=== PATIENT | female | born 1970 | race Caucasian/White ===

== ENCOUNTER 2016-11-17 20:57 | Emergency (ER) | payer MEDICAID, OTHER ==
--- NOTE | 2016-11-18 01:19 | ER Document Report ---
ED Skin Rash/Insect Bite/Abscs - General Time seen by provider: 01:15 Mode of Arrival: Ambulatory Information source: Patient TRAVEL OUTSIDE OF THE [place] IN LAST 30 DAYS: No - HPI Patient complains to provider of: Skin rash/lesion Onset: Other Onset/Duration: - Quality of pain: Other - Precautions again itchy Severity: Moderate Pain Level: 3 Skin Character: Rash Skin Temperature: Warm Quality of rash: Itchy, Painful Identify cause: No Exacerbated by: Denies Relieved by: Denies Similar symptoms previously: No Recently seen / treated by doctor: No <CARLO DUBON - Last Filed: 11/18/16 06:50> <NIXON HARVEY - Last Filed: 11/18/16 07:31> - General Chief Complaint: Rash Stated Complaint: RASH Notes: 46-year-old female presents to ED for a rash to her abdomen back chest arms or legs. She states she had a liver transplant in 2013. She states that she had a couple spots on her abdomen on then her abdomen was covered on Saturday then it spread to her arms legs and back on Saturday states the rash is prickly and itchy at the same time. (CARLO DUBON) - Related Data Allergies/Adverse Reactions: amoxicillin [Amoxicillin] Allergy (Severe, Verified 11/17/16 22:15) rash acetaminophen [From Tylenol] Adverse Reaction (Severe, Verified 11/17/16 22:15) NOT SUPPOSED TO TAKE R/T LIVER TRANSPLANT cyclobenzaprine HCl [From Flexeril] Adverse Reaction (Severe, Verified 11/17/16 22:15) QUESTIONABLE CONFUSION, BLACKOUTS meperidine HCl [From Demerol] Adverse Reaction (Intermediate, Verified 11/17/16 22:15) Hallucinations Past Medical History - General Information source: Patient - Social History Smoking Status: Never Smoker Cigarette use (# per day): No Chew tobacco use (# tins/day): No Smoking Education Provided: No Frequency of alcohol use: None Drug Abuse: None Lives with: Family Family History: DM, Hypertension, Malignancy Patient has suicidal ideation: No Patient has homicidal ideation: No - Past Medical History Cardiac Medical History: Reports: Hx Hypercholesterolemia Pulmonary Medical History: Reports: Hx Pneumonia - 1990, since had pneumovax in [place] Medical History: Reports: None Neurological Medical History: Reports: None Endocrine Medical History: Reports: None Renal/ Medical History: Reports: None Malignancy Medical History: Reports: None GI Medical History: Reports: Hx Cirrhosis, Hx Gastroesophageal Reflux Disease, Hx Hepatitis - autoimmune hepatitis since 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, Hx Liver Failure - transplant at [facility] 09/2013 Musculoskeltal Medical History: Reports None Skin Medical History: Reports None Psychiatric Medical History: Reports: Hx Depression Traumatic Medical History: Reports: Hx Fractures - toe Infectious Medical History: Reports: Hx Hepatitis - autoimmune hepatitis since 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 Past Surgical History: Reports: Hx Abdominal Surgery - Liver Transplant 09/2013 , Hx Gynecologic Surgery - Immunizations Immunizations up to date: Yes Hx Diphtheria, Pertussis, Tetanus Vaccination: Yes Hx Pneumococcal Vaccination: 09/24/91 <CARLO DUBON - Last Filed: 11/18/16 06:50> Review of Systems - Review of Systems Constitutional: No symptoms reported EENT: No symptoms reported Cardiovascular: No symptoms reported Respiratory: No symptoms reported Gastrointestinal: No symptoms reported Genitourinary: No symptoms reported Female Genitourinary: No symptoms reported Musculoskeletal: No symptoms reported Skin: Rash - Itchy painful rash to abdomen back chest arms and legs Hematologic/Lymphatic: No symptoms reported Neurological/Psychological: No symptoms reported <CARLO DUBON - Last Filed: 11/18/16 06:50> Physical Exam - Vital signs Interpretation: Normal - General General appearance: Appears well, Alert - HEENT Head: Normocephalic, Atraumatic Eyes: Normal Pupils: PERRL - Respiratory Respiratory status: No respiratory distress Chest status: Nontender Breath sounds: Normal Chest palpation: Normal - Cardiovascular Rhythm: Regular Heart sounds: Normal auscultation Murmur: No - Abdominal Inspection: Other - Rash to entire abdomen Distension: No distension Bowel sounds: Normal Tenderness: Nontender Organomegaly: No organomegaly - Back Back: Nontender, Other - Rash to back - Extremities General upper extremity: Normal inspection, Nontender, Normal color, Normal ROM , Normal temperature General lower extremity: Normal inspection, Nontender, Normal color, Normal ROM , Normal temperature, Normal weight bearing. No: Rosemary's sign - Neurological Neuro grossly intact: Yes Cognition: Normal Orientation: AAOx4 [place] Coma Scale Eye Opening: Spontaneous Amelia Coma Scale Verbal: Oriented Amelia Coma Scale Motor: Obeys Commands [place] Coma Scale Total: 15 Speech: Normal Motor strength normal: LUE, RUE, LLE, RLE Sensory: Normal - Psychological Associated symptoms: Normal affect, Normal mood - Skin Skin Temperature: Warm Skin Moisture: Dry Skin Color: Normal Location of irregularity: Abdomen, Chest, Back, Extremities Character of irregularity: Maculopapular, Erythematous Irregularity with: Tenderness, Warmth <CARLO DUBON - Last Filed: 11/18/16 06:50> Course - Laboratory Result Diagrams: 11/18/16 02:36 11/18/16 02:36 <CARLO DUBON - Last Filed: 11/18/16 06:50> - Laboratory Result Diagrams: 11/18/16 02:36 11/18/16 02:36 <NIXON HARVEY - Last Filed: 11/18/16 07:31> - Re-evaluation Re-evalutation: 11/18/16 06:[address] Harvey and had him come assess the patient due to the fact that the patient has had a liver transplant. He requested the patient have blood and urine drawn and then treat patient with 600 mg of clindamycin in the ED. Labs discussed with Dr. Harvey and the patient given 600 mg of clindamycin IV and discharged home with prescription for clindamycin 300 mg 3 times a day,. Patient instructed to return to the ED immediately for any abdominal pain nausea vomiting or fever. (CARLO DUBON) - Vital Signs Vital signs: Temp Pulse Resp BP Pulse Ox 98.7 F 79 18 121/76 97 11/18/16 04:40 11/18/16 04:40 11/18/16 04:40 11/18/16 04:40 11/18/16 04:40 (CARLO DUBON) (NIXON HARVEY) - Laboratory Laboratory results interpreted by hi: 11/18/16 11/18/16 11/18/16 02:36 02:36 02:36 Hgb 9.5 L Hct 30.6 L MCV 71 L MCH 22.1 L MCHC 31.1 L RDW 16.7 H Plt Count 139 L Seg Neutrophils % 81.0 H Lymphocytes % 8.2 L Creatinine 1.26 H Est GFR ( Amer) 56 L Est GFR (Non-Af Amer) 46 L Urine Protein 100 H Urine Blood LARGE H Ur Leukocyte Esterase SMALL H (NIXON HARVEY) - Transfer of Care Notes: 11/18/16 07:30 I did evaluate the patient can junction with the nurse practitioner. Patient does have a rash cross her torso. She has very small amount of the rash on her proximal legs. The rash does look consistent with bacterial infection. It is a blanchable papular rash with some pustules. It is all tender to touch. The patient clinically looks well. Due to her history of liver transplant we did check her labs. She has a normal white count. Her liver enzymes are normal. We do a trial on outpatient antibiotics. We'll give her strict return precautions if the rash worsens or she has fevers or she feels that she is worsening in any way. Dictation of this chart was performed using voice recognition software; therefore, there may be some unintended grammatical errors. (NIXON HARVEY) Discharge <CARLO DUBON - Last Filed: 11/18/16 06:50> <NIXON HARVEY - Last Filed: 11/18/16 07:31> - Discharge Clinical Impression: Folliculitis Condition: Stable Disposition: HOME, SELF-CARE Additional Instructions: Folliculitis You have a skin infection called folliculitis. This occurs when bacteria infect the hair follicles of the skin. Typically, redness and small pustules are found where hair shafts enter the skin. Allergy, surface irritation, shaving, and exposure to hot tubs predispose to folliculitis. The usual treatment is antibiotic ointment, sometimes combined with cortisone-type medication. Warm compresses are often used. If the infection has moved deeper into the skin, oral antibiotics may be necessary. To avoid future episodes of folliculitis, you must identify (if possible) the factors which allowed this infection to start. If you develop increasing pain, swelling, fever, or red streaks, call the doctor or return for re-evaluation. Clindamycin You have been given a prescription for the antibiotic clindamycin. It is often prescribed for infections in the mouth, such as dental infections or abscesses, and for skin infections due to MRSA. It's important that you take all the medication, unless instructed otherwise by your physician. Failure to complete the entire course can result in relapse of your condition. Common side effects of antibiotics include nausea, intestinal cramping, or diarrhea. Women may develop vaginal yeast infections, and babies can get yeast (thrush) in the mouth following the use of antibiotics. Contact your physician if you develop significant side effects from this medication. Allergy to this antibiotic can result in hives, wheezing, faintness, or itching. If symptoms of allergy occur, stop the medication and call the doctor. Soap Cleansing Gently wash the wound daily using a mild soap (like Ivory, Phisoderm, Neutrogena). Use warm water, rubbing gently until all debris, ooze, and crusting have been washed from the wound. Allow to dry briefly (about 10 minutes) after cleaning. Repeat this cleansing at least three times a day for the first two days and then once or twice a day. Please return to the emergency room immediately for any fever increase in pain increase in rash or any other concerns. Do not wait until you become very sick. FOLLOW-UP CARE: If you have been referred to a physician for follow-up care, call the physician s office for an appointment as you were instructed or within the next two days. If you experience worsening or a significant change in your symptoms, notify the physician immediately or return to the Emergency Department at any time for re-evaluation. Prescriptions: Clindamycin HCl 300 mg PO TID #30 capsule Forms: Elevated Blood Pressure, Return to Work Referrals: MEENU BRIAN MD [Primary Care Provider] - Follow up as needed
[2016-11-18 02:47] LABS: ABSOLUTE EOSINOPHILS # (AUTO) 0.1 10^3/uL (0.0-0.6); ABSOLUTE LYMPHOCYTES (AUTO) 0.5 10^3/uL (0.5-4.7); ABSOLUTE MONOCYTES (AUTO) 0.5 10^3/uL (0.1-1.4); ABSOLUTE NEUT (AUTO) 4.9 10^3/uL (1.7-8.2); BASOPHILS % (AUTO) 0.6 % (0-2); EOSINOPHILS % (AUTO) 1.4 % (0-6); HEMATOCRIT 30.6 % (36.0-47.0); HEMOGLOBIN 9.5 g/dL (12.0-15.5); HGB HCT DIFFERENCE -2.1; LYMPHOCYTES % (AUTO) 8.2 % (13-45); MEAN CORPUSCULAR HEMOGLOBIN 22.1 pg (27.0-33.4); MEAN CORPUSCULAR HGB CONC 31.1 g/dL (32.0-36.0); MEAN CORPUSCULAR VOLUME 71 fl (80-97); MONOCYTES % (AUTO) 8.8 % (3-13); RED BLOOD COUNT 4.31 10^6/uL (3.72-5.28); RED CELL DISTRIBUTION WIDTH 16.7 % (11.5-14.0); WHITE BLOOD COUNT 6.1 10^3/uL (4.0-10.5)
[2016-11-18 02:52] LABS: APPEARANCE,URINE CLOUDY; BILIRUBIN,URINE NEGATIVE (NEGATIVE); GLUCOSE, URINE NEGATIVE (NEGATIVE); KETONES,URINE NEGATIVE (NEGATIVE); LEUKOCYTE ESTERASE,URINE SMALL (NEGATIVE); NITRITE,URINE NEGATIVE (NEGATIVE); PROTEIN,URINE 100 mg/dL (NEGATIVE); UROBILINOGEN,URINE NEGATIVE mg/dL (<2.0)
[2016-11-18 03:01] LABS: ALANINE AMINOTRANSFERASE 19 U/L (9-52); ALKALINE PHOSPHATASE 121 U/L (38-126); ANION GAP 12 (5-19); ASPARTATE AMINO TRANSFERASE 18 U/L (14-36); BILIRUBIN,TOTAL 0.9 mg/dL (0.2-1.3); BLOOD UREA NITROGEN 18 mg/dL (7-20); CALCIUM 9.5 mg/dL (8.4-10.2); CARBON DIOXIDE 22 mmol/L (22-30); CHLORIDE 105 mmol/L (98-107); CREATININE RESULT 1.26 mg/dL (0.52-1.25); GLUCOSE 88 mg/dL (75-110); POTASSIUM 4.5 mmol/L (3.6-5.0); SODIUM 138.8 mmol/L (137-145)
[2016-11-18] MEDS ORDERED: CLINDAMYCIN 600 MG/D5W RTU 50 ML IV ONE (03:46)
[2016-11-18 04:48] VITALS: BP 121/76
== END 2016-11-18 04:49 | disposition home or self-care (01) ==
LOC: ER 20:57
DX: L73.9 Follicular disorder, unspecified (principal); E78.00 Pure hypercholesterolemia, unspecified; K21.9 Gastro-esophageal reflux disease without esophagitis; K75.4 Autoimmune hepatitis; Z88.0 Allergy status to penicillin; Z94.4 Liver transplant status; Z88.6 Allergy status to analgesic agent
CPT/HCPCS: 99283; 36415; 85025; 80053; 81001; S0077

== ENCOUNTER → 2017-01-08 | Outpatient (CLI) | payer MEDICAID, OTHER | LOC: WI 12:59 | PROVIDERS: ATTEND Family Medicine | DX: Z12.31 Encounter for screening mammogram for malignant neoplasm of breast (principal); N64.89 Other specified disorders of breast | CPT/HCPCS: 77067; G0202 ==

== ENCOUNTER → 2017-01-24 | Outpatient (CLI) | payer MEDICAID | LOC: WI 13:31 | PROVIDERS: ATTEND Physician Assistant | DX: N92.4 Excessive bleeding in the premenopausal period (principal) | CPT/HCPCS: 76830 ==

== ENCOUNTER → 2017-02-26 | Outpatient (CLI) | payer MEDICAID ==
--- NOTE | 2017-02-27 09:31 | WOMENS IMAGING REPORT ---
EXAM DESCRIPTION: RIGHT DIAGNOSTIC MAMMO W/CAD COMPLETED DATE/TIME: 02/26/2017 9:51 am REASON FOR STUDY: R92.2, INCONCLUSIVE MAMMO R92.2 INCONCLUSIVE MAMMOGRAM COMPARISON: Multiple previous, most recently 01/08/2017 TECHNIQUE: Standard craniocaudal and 90 mediolateral oblique mammograms, right breast 90 mediolate ral tomosynthesis of the breast recorded with digital acquisition. LIMITATIONS: None. FINDINGS: BREAST: Right MASSES: No suspicious masses. Findings described on 01/08/2017 are superimposed shadows. No persiste nt finding on today's study CALCIFICATIONS: No new or suspicious calcifications. Benign vascular calcifications are present ARCHITECTURAL DISTORTION: None. DEVELOPING DENSITY: None. ASYMMETRY: None noted. OTHER: No other significant findings. Read with the assistance of CAD. .[facility] - R2 Cenova Version 1.3 .[facility] Imaging - R2 Cenova Version 1.3 .[facility] Imaging - R2 Cenova Version 2.4 .[facility] - R2 Cenova Version 2.4 .[facility] - R2 Steeler Version 9.2 IMPRESSION: No mammographic evidence for malignancy right breast BREAST DENSITY: c. The breasts are heterogeneously dense, which may obscure small masses. BIRAD: 2 Benign findings. RECOMMENDATION: RECOMMENDED FOLLOW UP: Please resume bilateral screening in December 2017. Because of heterogeneously dense tissue, please consider bilateral screening tomosynthesis SPECIFIC INTERVENTION/IMAGING/CONSULTATION RECOMMENDED:No additional intervention/ imaging/consultati on needed at this time. COMMUNICATION:Patient notified by letter COMMENT: The patient has been notified of the results by letter per SA requirements. Additional no tification policies are in place for contacting patient with suspicious or incomplete findings. Quality ID #[id number]: The [employer] recommends an annual screening mammogram for women aged 40 years or over. This facility utilizes a reminder system to ensure that all patients receive reminder letters, and/or direct phone calls for appointments. This includes reminders for routine scr eening mammograms, diagnostic mammograms, or other Breast Imaging Interventions when appropriate. Th is patient will be placed in the appropriate reminder system. The [employer] (ACR) has developed recommendations for screening MRI of the breast s in certain patient populations, to be used in conjunction with mammography. Breast MRI surveillanc e may be appropriate for women with more than 20% lifetime risk of developing breast cancer as deter mined by genetic testing, significant family history of the disease, or history of mantle radiation f or Hodgkins Disease. ACR Practice Guidelines 2008. TECHNICAL DOCUMENTATION: FINDING NUMBER: (1) ASSESSMENT: (1) JOB ID: [id number] [employer]- All Rights Reserved
== END ==
LOC: WI 09:52
PROVIDERS: ATTEND Family Medicine
DX: R92.2 Inconclusive mammogram (principal)
CPT/HCPCS: G0206-52

== ENCOUNTER 2017-03-29 09:07 | Outpatient (CLI) | payer MEDICAID ==
[~2017-03-29 09:07] MED LIST: FERRIC CARBOXYMALTOSE 750 MG in NORMAL SALINE 250 ML IV PRN; NORMAL SALINE 250 ML IV PRN
[2017-03-29 09:59] VITALS: BP 126/78
== END 2017-03-29 11:00 | disposition home or self-care (01) ==
LOC: II 09:07 → 5TH 09:11 → II 11:00
PROVIDERS: ATTEND Internal Medicine
PROC: 3E033GC Introduction of Other Therapeutic Substance into Peripheral Vein, Percutaneous Approach (ICD-10-PCS; principal; 2017-03-29)
DX: D50.8 Other iron deficiency anemias (principal); K90.9 Intestinal malabsorption, unspecified
CPT/HCPCS: 96367; J7050; J1439; 96374

== ENCOUNTER 2017-04-05 11:27 | Outpatient (CLI) | payer MEDICAID ==
[2017-04-05 11:59] VITALS: BP 111/62
== END 2017-04-05 12:40 | disposition home or self-care (01) ==
LOC: II 11:27 → 5TH 11:29 → II 12:40
PROVIDERS: ATTEND Internal Medicine
PROC: 3E033GC Introduction of Other Therapeutic Substance into Peripheral Vein, Percutaneous Approach (ICD-10-PCS; principal; 2017-04-05)
DX: D50.8 Other iron deficiency anemias (principal); K90.9 Intestinal malabsorption, unspecified
CPT/HCPCS: 96367; J7050; J1439; 96374

== ENCOUNTER 2017-06-22 11:22 | Emergency (ER) | payer MEDICAID ==
--- NOTE | 2017-06-22 11:39 | ER Document Report ---
ED Neck/Back Problem - General Stated Complaint: LOW BACK PAIN Time Seen by Provider: 06/22/17 11:31 Mode of Arrival: Medic Information source: Patient TRAVEL OUTSIDE OF THE [place] IN LAST 30 DAYS: No - HPI Patient complains to provider of: Pain, Lower back Onset: Yesterday - LAST PM. Where: Home Onset: Sudden Timing: Constant Quality of pain: Sharp Severity: Moderate Context: Other - TRANSFERRING TO WHEEL-CHAIR, LANDED HARD IN CHAIR & HAD INCREASED PAIN. PERSISTED THRU THE NIGHT, UNCHANGED THIS AM. Recent injury: Possibly Associated symptoms: Radiation to leg - LEFT THIGH & KNEE, NONE BELOW KNEE. Exacerbated by: Movement of trunk, Sitting position Relieved by: Supine, Remaining still Similar symptoms previously: Yes - MUCH MORE SEVERE THIS AM. Recently seen / treated by doctor: No - Related Data Allergies/Adverse Reactions: amoxicillin [Amoxicillin] Allergy (Severe, Verified 11/17/16 22:15) rash acetaminophen [From Tylenol] Adverse Reaction (Severe, Verified 11/17/16 22:15) NOT SUPPOSED TO TAKE R/T LIVER TRANSPLANT cyclobenzaprine HCl [From Flexeril] Adverse Reaction (Severe, Verified 11/17/16 22:15) QUESTIONABLE CONFUSION, BLACKOUTS meperidine HCl [From Demerol] Adverse Reaction (Intermediate, Verified 11/17/16 22:15) Hallucinations Past Medical History - General Information source: Patient - Social History Smoking Status: Unknown if Ever Smoked Cigarette use (# per day): No Chew tobacco use (# tins/day): No Frequency of alcohol use: None Drug Abuse: None Lives with: Spouse/Significant other Family History: DM, Hypertension, Malignancy - Past Medical History Cardiac Medical History: Reports: Hx Hypercholesterolemia Pulmonary Medical History: Reports: Hx Pneumonia - 1990, since had pneumovax in Neurological Medical History: Reports: Other - HEPATIC MYELOPATHY Renal/ Medical History: Denies: Hx Peritoneal Dialysis GI Medical History: Reports: Hx Cirrhosis, Hx Gastroesophageal Reflux Disease, Hx Hepatitis - autoimmune hepatitis since 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, Hx Liver Failure - transplant [facility] 09[facility]2013 Musculoskeltal Medical History: Reports None Psychiatric Medical History: Reports: Hx Depression Traumatic Medical History: Reports: Hx Fractures - toe Infectious Medical History: Reports: Hx Hepatitis - autoimmune hepatitis since 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 Past Surgical History: Reports: Hx Abdominal Surgery - Liver Transplant 09/2013 , Hx Gynecologic Surgery - Immunizations Immunizations up to date: Yes Hx Diphtheria, Pertussis, Tetanus Vaccination: Yes Hx Pneumococcal Vaccination: 09/24/91 Review of Systems - Review of Systems Constitutional: No symptoms reported. denies: Chills, Fever EENT: No symptoms reported Cardiovascular: No symptoms reported Respiratory: No symptoms reported Gastrointestinal: Nausea - SLIGHT Genitourinary: Incontinence - MILD, CHRONIC, UNCHANGED Female Genitourinary: No symptoms reported Musculoskeletal: See HPI, Back pain Skin: No symptoms reported Neurological/Psychological: See HPI Physical Exam - Vital signs Vitals: Temp Pulse Resp BP Pulse Ox 98.1 F 67 18 151/99 H 98 06/22/17 11:28 06/22/17 11:28 06/22/17 11:28 06/22/17 11:28 06/22/17 11:28 Course - Vital Signs Vital signs: Temp Pulse Resp BP Pulse Ox 98.1 F 67 18 151/99 H 98 06/22/17 11:28 06/22/17 11:28 06/22/17 11:28 06/22/17 11:28 06/22/17 11:28 - Laboratory Result Diagrams: 06/22/17 12:00 06/22/17 12:00 Laboratory results interpreted by me: 06/22/17 06/22/17 12:00 13:15 Hgb 11.3 L Hct 33.4 L RDW 15.6 H Plt Count 108 L Lymphocytes % 12.7 L Urine Protein 30 H Urine Blood MODERATE H Discharge - Discharge Clinical Impression: Chronic liver disease and cirrhosis, Chronic myelopathy, Liver transplant recipient Low back strain Qualifiers: Encounter type: initial encounter Qualified Code(s): S39.012A - Strain of muscle, fascia and tendon of lower back, initial encounter Condition: Stable Disposition: HOME, SELF-CARE Instructions: Low Back Pain ([facility]), Corticosteroid Medication ([facility]), Oral Narcotic Medication ([facility]) Additional Instructions: AVOID PAINFUL ACTIVITY. MEDS DIRECTED. FOLLOW UP WITH YOUR PRIMARY CARE PROVIDER WITHIN THE NEXT 3-5 DAYS. RETURN TO E.R. FOR RE-EVALUATION IF PROBLEMS, ANY TIME. Prescriptions: Oxycodone HCl [Oxy-Ir 5 mg Tablet] 5 mg PO Q6HP PRN #10 tablet PRN Reason: For Pain Referrals: MEENU BRIAN MD [Primary Care Provider] - Follow up in 3-5 days
[2017-06-22] MEDS ORDERED: ONDANSETRON HCL INJ/PF 4 MG/2 ML SDV IV ONE (11:48)
[2017-06-22] MEDS ORDERED: MORPHINE SULFATE 10 MG/ML INJ IV ONE (11:48)
[2017-06-22 12:14] LABS: ABSOLUTE EOSINOPHILS # (AUTO) 0.1 10^3/uL (0.0-0.6); ABSOLUTE LYMPHOCYTES (AUTO) 0.7 10^3/uL (0.5-4.7); ABSOLUTE MONOCYTES (AUTO) 0.4 10^3/uL (0.1-1.4); ABSOLUTE NEUT (AUTO) 4.3 10^3/uL (1.7-8.2); BASOPHILS % (AUTO) 0.2 % (0-2); EOSINOPHILS % (AUTO) 1.5 % (0-6); HEMATOCRIT 33.4 % (36.0-47.0); HEMOGLOBIN 11.3 g/dL (12.0-15.5); HGB HCT DIFFERENCE 0.5; LYMPHOCYTES % (AUTO) 12.7 % (13-45); MEAN CORPUSCULAR HEMOGLOBIN 29.9 pg (27.0-33.4); MEAN CORPUSCULAR HGB CONC 33.9 g/dL (32.0-36.0); MEAN CORPUSCULAR VOLUME 88 fl (80-97); MONOCYTES % (AUTO) 7.8 % (3-13); RED CELL DISTRIBUTION WIDTH 15.6 % (11.5-14.0); SEGMENTED NEUTROPHILS % (AUTO) 77.8 % (42-78); WHITE BLOOD COUNT 5.6 10^3/uL (4.0-10.5)
[2017-06-22 12:31] LABS: ALANINE AMINOTRANSFERASE 17 U/L (9-52); ALKALINE PHOSPHATASE 121 U/L (38-126); ANION GAP 11 (5-19); ASPARTATE AMINO TRANSFERASE 16 U/L (14-36); BILIRUBIN,DIRECT 0.3 mg/dL (0.0-0.4); BILIRUBIN,TOTAL 0.9 mg/dL (0.2-1.3); BLOOD UREA NITROGEN 16 mg/dL (7-20); CALCIUM 10.1 mg/dL (8.4-10.2); CARBON DIOXIDE 23 mmol/L (22-30); CHLORIDE 106 mmol/L (98-107); CREATININE RESULT 0.99 mg/dL (0.52-1.25); GLUCOSE 96 mg/dL (75-110); POTASSIUM 4.7 mmol/L (3.6-5.0); SODIUM 139.5 mmol/L (137-145); TOTAL PROTEIN 7.2 g/dL (6.3-8.2)
[2017-06-22] MEDS ORDERED: DEXAMETHASONE SOD PHOSPHATE INJ 4 MG/1 ML VIAL IV ONE (13:42)
--- NOTE | 2017-06-22 14:49 | RADIOLOGY REPORT (SQ) ---
EXAM DESCRIPTION: CT LUMBAR SPINE WITHOUT COMPLETED DATE/TIME: 06/22/2017 2:31 pm REASON FOR STUDY: pain after trauma last PM COMPARISON: Pelvic ultrasound 01/24/2017 TECHNIQUE: Axial images acquired through the lumbar spine without intravenous contrast. Images revi ewed with lung, soft tissue and bone windows. Reconstructed coronal and sagittal MPR images reviewed . All images stored on PACS. All CT scanners at this facility use dose modulation, iterative reconstruction, and/or weight based d osing when appropriate to reduce radiation dose to as low as reasonably achievable (ALARA). [facility]: Dose Right [facility]: CareDose [facility]: Dose Right [facility]: Teradose 4D [facility]: Smart Kik RADIATION DOSE: Up-to-date CT equipment and radiation dose reduction techniques were employed. CTDIv ol: 21.2 mGy. DLP: 899 mGy-cm. mGy. LIMITATIONS: None. FINDINGS: SEGMENTATION: Normal. No transitional anatomy. ALIGNMENT: Normal. VERTEBRAL BODIES: No fractures. No dislocation. No acute findings. DISCS: Very mild disc space loss of height at L4-5, moderate disc space loss of height at L5-S1. No significant central or foraminal encroachment at these levels. PEDICLES, TRANSVERSE PROCESSES: No fractures. No dislocation. No acute findings. FACETS, POSTERIOR ELEMENTS: No fractures. No dislocation. No spinal stenosis. HARDWARE: None in the spine. VISUALIZED RIBS: No fractures. SOFT TISSUES: No significant or acute finding in adjacent soft tissues. OTHER: Uterine fundal fibroid at the bottom edge of the field of view. IMPRESSION: No acute changes TECHNICAL DOCUMENTATION: JOB ID: [id number] Quality ID # [id number]: Final reports with documentation of one or more dose reduction techniques (e.g., Au tomated exposure control, adjustment of the mA and/or kV according to patient size, use of iterative reconstruction technique) 2010 [employer]- All Rights Reserved
[2017-06-22 16:39] LABS: APPEARANCE,URINE TURBID; BILIRUBIN,URINE NEGATIVE (NEGATIVE); GLUCOSE, URINE NEGATIVE (NEGATIVE); KETONES,URINE NEGATIVE (NEGATIVE); LEUKOCYTE ESTERASE,URINE NEGATIVE (NEGATIVE); NITRITE,URINE NEGATIVE (NEGATIVE); PROTEIN,URINE 30 mg/dL (NEGATIVE); URINE SPECIFIC GRAVITY 1.018; UROBILINOGEN,URINE NEGATIVE mg/dL (<2.0)
[2017-06-22 17:19] VITALS: BP 130/85
== END 2017-06-22 17:22 | disposition home or self-care (01) ==
LOC: ER 11:22
DX: S39.012A Strain of muscle, fascia and tendon of lower back, initial encounter (principal); K74.60 Unspecified cirrhosis of liver; G95.9 Disease of spinal cord, unspecified; Z94.4 Liver transplant status; M54.5 Low back pain; X58.XXXA Exposure to other specified factors, initial encounter
CPT/HCPCS: 99284; 96374; 96375; 36415; 85025; 80053; 81001; 72131; J1100; J2270; J2405

== ENCOUNTER → 2017-09-12 | Outpatient (CLI) | payer MEDICAID ==
--- NOTE | 2017-09-12 13:53 | RADIOLOGY REPORT (SQ) ---
EXAM DESCRIPTION: FOOT RIGHT COMPLETE COMPLETED DATE/TIME: 09/12/2017 12:50 pm REASON FOR STUDY: PAIN IN RIGHT FOOT M79.671 PAIN IN RIGHT FOOT COMPARISON: 04/11/2015 NUMBER OF VIEWS: Three views. TECHNIQUE: AP, lateral and oblique radiographic images acquired of the right foot. LIMITATIONS: None. FINDINGS: MINERALIZATION: Normal. BONES: No acute fracture or dislocation. No worrisome bone lesions. JOINTS: No effusions. SOFT TISSUES: No soft tissue swelling. No foreign body. OTHER: No other significant finding. IMPRESSION: NEGATIVE STUDY OF THE RIGHT FOOT. NO RADIOGRAPHIC EVIDENCE OF ACUTE INJURY. TECHNICAL DOCUMENTATION: JOB ID: [id number] [employer]- All Rights Reserved
== END ==
LOC: OD 12:30
PROVIDERS: ATTEND Physician Assistant
DX: M79.671 Pain in right foot (principal)

== ENCOUNTER → 2018-02-11 | Outpatient (CLI) | payer MEDICAID ==
--- NOTE | 2018-02-11 15:00 | RADIOLOGY REPORT (SQ) ---
EXAM DESCRIPTION: CHEST PA/LATERAL COMPLETED DATE/TIME: 02/11/2018 2:18 pm REASON FOR STUDY: COUGH COMPARISON: Two-view chest 07/30/2016, 06/05/2015 EXAM PARAMETERS: NUMBER OF VIEWS: two views TECHNIQUE: Digital Frontal and Lateral radiographic views of the chest acquired. RADIATION DOSE: NA LIMITATIONS: none FINDINGS: LUNGS AND PLEURA: No acute infiltrates. No pleural effusion or pneumothorax. Minimal ban dlike linear scarring left retrocardiac region unchanged since 2014. MEDIASTINUM AND HILAR STRUCTURES: No masses or contour abnormalities. HEART AND VASCULAR STRUCTURES: Heart normal size. No evidence for failure. BONES: No acute findings. HARDWARE: None in the chest. OTHER: No other significant finding. IMPRESSION: No acute findings. TECHNICAL DOCUMENTATION: JOB ID: [id number] [employer]- All Rights Reserved Reading location - IP/workstation name: [email or web address]
== END ==
LOC: OD 13:49
PROVIDERS: ATTEND Family Medicine
DX: R05 Cough (principal)
CPT/HCPCS: 71046

== ENCOUNTER → 2018-03-28 | Outpatient (CLI) | payer MEDICAID ==
--- NOTE | 2018-03-28 16:43 | WOMENS IMAGING REPORT ---
EXAM DESCRIPTION: 3D SCREENING MAMMO BILAT COMPLETED DATE/TIME: 03/28/2018 3:01 pm REASON FOR STUDY: SCREENING MAMMO Z12.31 ENCNTR SCREEN MAMMOGRAM FOR MALIGNANT NEOPLASM OF JESUS COMPARISON: Multiple since 2010 TECHNIQUE: Standard craniocaudal and mediolateral oblique views of each breast recorded using digita l acquisition and breast tomosynthesis. LIMITATIONS: None. FINDINGS: No masses, calcifications or architectural distortion. No areas of suspicion. Read with the assistance of CAD. .[facility] - R2 Cenova Version 1.3 .[facility] Imaging - R2 Cenova Version 1.3 .[facility] Imaging - R2 Cenova Version 2.4 .[facility] - R2 Cenova Version 2.4 .[facility] - R2 Flight Technician Version 9.2 IMPRESSION: NORMAL MAMMOGRAM. BIRADS 1. BREAST DENSITY: c. The breasts are heterogeneously dense, which may obscure small masses. BIRAD: 1 NEGATIVE RECOMMENDATION: ROUTINE SCREENING Please continue yearly bilateral screening tomosynthesis in February 2019 COMMENT: The patient has been notified of the results by letter per SA requirements. Additional no tification policies are in place for contacting patient with suspicious or incomplete findings. Quality ID #[id number]: The [employer] recommends an annual screening mammogram for women aged 40 years or over. This facility utilizes a reminder system to ensure that all patients receive reminder letters, and/or direct phone calls for appointments. This includes reminders for routine scr eening mammograms, diagnostic mammograms, or other Breast Imaging Interventions when appropriate. Th is patient will be placed in the appropriate reminder system. The [employer] (ACR) has developed recommendations for screening MRI of the breast s in certain patient populations, to be used in conjunction with mammography. Breast MRI surveillanc e may be appropriate for women with more than 20% lifetime risk of developing breast cancer as deter mined by genetic testing, significant family history of the disease, or history of mantle radiation f or Hodgkins Disease. ACR Practice Guidelines 2008. DBT Technology DBT is a type of tomographic mammography. With conventional mammography, overlapping breast tissue ma y make lesions difficult to detect, even with good compression. DBT uses an x-ray tube that rotates a round the breast, taking images at different angles. These images are then combined to create thin sl ices of the breast that the radiologist can view as a 3D reconstruction. The [employer] unit can perform full-field digital mammograms (2D imaging); or DBT (3D imaging); or both, in a combination mode that quickly performs both the mammogram and the tomosynthesis scan while the breast is still compressed. PQRS 6045F: Fluoroscopic imaging is not utilized for breast tomosynthesis. TECHNICAL DOCUMENTATION: FINDING NUMBER: (1) ASSESSMENT: (1) JOB ID: [id number] [employer]- All Rights Reserved Reading location - IP/workstation name: [facility]
== END ==
LOC: WI 14:04
PROVIDERS: ATTEND Physician Assistant
DX: Z12.31 Encounter for screening mammogram for malignant neoplasm of breast (principal)
CPT/HCPCS: 77063; 77067

== ENCOUNTER 2019-08-30 11:49 | Emergency (ER) | payer MEDICAID ==
[2019-08-30] MEDS ORDERED: OXYCODONE HCL IR 5 MG TABLET PO ONE (12:27)
[2019-08-30] MEDS ORDERED: CLINDAMYCIN 600 MG/D5W RTU 600 MG/50 ML RTUPB IV ONE (12:27)
--- NOTE | 2019-08-30 12:28 | ER Document Report ---
HPI - HPI Time Seen by Provider: 08/30/19 11:57 Pain Level: 3 Notes: Patient is a 49-year-old female presenting to the emergency department chief complaint of possible insect bite to her left arm. Patient reports she believes this occurred 3 days ago. She states that she does not know what bit her but there is increased redness and swelling to the area. She also reports pain. Denies history of abscesses or MRSA. Denies fevers. - REPRODUCTIVE Reproductive: DENIES: : Past Medical History - General Information source: Patient - Social History Smoking Status: Never Smoker Chew tobacco use (# tins/day): No Drug Abuse: None Family History: DM, Hypertension, Malignancy Patient has suicidal ideation: No Patient has homicidal ideation: No - Past Medical History Cardiac Medical History: Reports: Hx Hypercholesterolemia Pulmonary Medical History: Reports: Hx Pneumonia - 1990, since had pneumovax in Renal/ Medical History: Denies: Hx Peritoneal Dialysis GI Medical History: Reports: Hx Cirrhosis, Hx Gastroesophageal Reflux Disease, Hx Hepatitis - autoimmune hepatitis since 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, Hx Liver Failure - transplant at [facility] 09/2013 Psychiatric Medical History: Reports: Hx Depression Traumatic Medical History: Reports: Hx Fractures - toe Infectious Medical History: Reports: Hx Hepatitis - autoimmune hepatitis since 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 Past Surgical History: Reports: Hx Abdominal Surgery - Liver Transplant 09/2013, Hx Gynecologic Surgery - Immunizations Immunizations up to date: Yes Hx Diphtheria, Pertussis, Tetanus Vaccination: Yes Hx Pneumococcal Vaccination: 09/24/91 Vertical Provider Document - CONSTITUTIONAL Notes: PHYSICAL EXAMINATION: GENERAL: Well-appearing, well-nourished and in no acute distress. HEAD: Atraumatic, normocephalic. EYES: Pupils equal round extraocular movements intact, conjunctiva are normal. ENT: Nares patent NECK: Normal range of motion LUNGS: No respiratory distress Musculoskeletal: Normal range of motion NEUROLOGICAL: Normal speech, normal gait. PSYCH: Normal mood, normal affect. SKIN: Erythema with induration noted to left upper arm, no fluctuance or evidence of abscess noted. - INFECTION CONTROL TRAVEL OUTSIDE OF THE [place] IN LAST 30 DAYS: No Course - Re-evaluation Re-evalutation: 08/30/19 12:59 Plan is to give patient a dose of IV clindamycin here in the emergency department, will use a surgical marker to ross the area of erythema. Plan to send patient home on oral antibiotics with strict ED return precautions. Patient verbalizes understanding and agreement this plan. The patient's emergency department workup and current diagnosis were explained to the patient and or family. Follow-up instructions were provided. Medications if prescribed were discussed. Instructions for when to return to the emergency department including specific worrisome symptoms were discussed with the patient and/or family. - Vital Signs Vital signs: Temp Pulse Resp BP Pulse Ox 98.2 F 80 18 137/82 H 95 08/30/19 11:57 08/30/19 11:57 08/30/19 11:57 08/30/19 11:57 08/30/19 11:57 - Laboratory Result Diagrams: 08/30/19 13:26 Discharge - Discharge Clinical Impression: Cellulitis Qualifiers: Site of cellulitis: unspecified site Qualified Code(s): L03.90 - Cellulitis, unspecified Condition: Stable Disposition: HOME, SELF-CARE Additional Instructions: The rash is likely due to infection of your skin. You were given a dose of IV antibiotics here in the emergency department. You need to take the antibiotics as prescribed. Do not stop even if the rash goes away until you have completed all the antibiotics. The area of redness was traced out here in the emergency department with a marking pen. You need to return to emergency department if the redness spreads outside of this area by more than 2 cm in any direction. You should also return if you develop fevers with temperature greater than 101, persistent vomiting, worsening pain, or have any other symptoms that are concerning to you. Prescriptions: Clindamycin HCl 300 mg PO QID #10 capsule Oxycodone HCl [Oxycontin Ir 5 Mg Tablet] 1 mg PO Q6H PRN #10 tablet PRN Reason: For Pain Referrals: ARUN JIN PA [Primary Care Provider] - Follow up as needed
[2019-08-30 13:53] LABS: ABSOLUTE EOSINOPHILS # (AUTO) 0.1 10^3/uL (0.0-0.6); ABSOLUTE LYMPHOCYTES (AUTO) 0.9 10^3/uL (0.5-4.7); ABSOLUTE MONOCYTES (AUTO) 0.5 10^3/uL (0.1-1.4); ABSOLUTE NEUT (AUTO) 4.9 10^3/uL (1.7-8.2); BASOPHILS % (AUTO) 0.3 % (0-2); EOSINOPHILS % (AUTO) 1.1 % (0-6); HEMATOCRIT 33.9 % (36.0-47.0); HEMOGLOBIN 11.3 g/dL (12.0-15.5); LYMPHOCYTES % (AUTO) 13.7 % (13-45); MEAN CORPUSCULAR HEMOGLOBIN 26.7 pg (27.0-33.4); MEAN CORPUSCULAR HGB CONC 33.4 g/dL (32.0-36.0); MEAN CORPUSCULAR VOLUME 80 fl (80-97); MONOCYTES % (AUTO) 7.4 % (3-13); PLATELET COUNT 128 10^3/uL (150-450); RED BLOOD COUNT 4.25 10^6/uL (3.72-5.28); RED CELL DISTRIBUTION WIDTH 16.8 % (11.5-14.0); SEGMENTED NEUTROPHILS % (AUTO) 77.5 % (42-78); TOTAL CELLS COUNTED % (AUTO) 100 %; WHITE BLOOD COUNT 6.3 10^3/uL (4.0-10.5)
[2019-08-30 14:48] VITALS: BP 146/78
== END 2019-08-30 14:45 | disposition home or self-care (01) ==
LOC: ER 11:49
DX: L03.90 Cellulitis, unspecified (principal)
CPT/HCPCS: 99283; 96365; 36415; 87040; 85025; S0077; J3490

== ENCOUNTER 2019-09-01 15:17 | Emergency (ER) | payer MEDICAID ==
--- NOTE | 2019-09-01 15:33 | ER Document Report ---
HPI - HPI Time Seen by Provider: 09/01/19 15:23 Notes: Patient is a 49-year-old female who presents for reevaluation of an infection to her left forearm that she was seen for 2 days ago. Patient was placed on clindamycin and the erythemic area was marked by skin marker. Patient states that she has been taking her antibiotic as directed. She has not had any worsening symptoms that she is aware of. She had noted some improvement in the erythema but it did slightly track proximal initially, but has since stopped. She is able to eat and drink without difficulty. No other concerns or complaints. 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, Hx Liver Failure - transplant at [facility] 09/2013 Psychiatric Medical History: Reports: Hx Depression Traumatic Medical History: Reports: Hx Fractures - toe Infectious Medical History: Reports: Hx Hepatitis - autoimmune hepatitis since 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 LUNGS: Breath sounds clear to auscultation bilaterally and equal. No wheezes rales or rhonchi. HEART: Regular rate and rhythm without murmurs, rubs, gallops. NEUROLOGICAL: Cranial nerves grossly intact. PSYCH: Normal mood, normal affect. SKIN: Left forearm: there is noted significant improvement in erythema from the markered area. I would expect some mild proximal progression initially from the infection while the antibiotic caught up which is what I am seeing, but no significant streaking or purulence. No obvious fluctuance. needle I&D performed w/o any purulence noted. - INFECTION CONTROL TRAVEL OUTSIDE OF THE [place] IN LAST 30 DAYS: No Course - Re-evaluation Re-evalutation: 09/01/19 15:33 Patient is an afebrile, well-hydrated, 49-year-old female who presents for reevaluation of the cellulitis she was diagnosed with to the left forearm 2 days ago. Vitals are acceptable without significant tachycardia, tachypnea, or hypoxia. PE is otherwise unremarkable. Patient is nontoxic-appearing and is tolerating p.o. without difficulty. Needle incision and drainage was performed except without any comp occasions and no prolapse was expressed. There is noted significant improvement in the erythema when looking at the marked border. She does have some proximal movement of the erythema which I would expect, but is not producing any significant streaking at this time. She is to continue her antibiotic as directed with skin instructions as reviewed. She is to recheck with her PCM this week. Return to the ED with any other worsening/concerning symptoms. Low suspicion for any other systemic or emergent condition at this time. Patient is in agreement. - Vital Signs Vital signs: Temp Pulse Resp BP Pulse Ox 97.7 F 80 16 168/114 H 100 09/01/19 15:22 09/01/19 15:22 09/01/19 15:22 09/01/19 15:22 09/01/19 15:22 Procedures - Incision and Drainage Left Arm Type: Simple I&D procedure: Chlorprep applied, Sterile dressing applied Incision Method: Incision made with needle Amount/type of drainage: no purulence Discharge - Discharge Clinical Impression: Encounter for wound re-check Condition: Stable Disposition: HOME, SELF-CARE Additional Instructions: Keep the skin clean Wash with soap and water Tylenol/ibuprofen if needed Triple antibiotic ointment daily Take medication as directed Monitor for any worsening symptoms Recheck with your PCM in 3-5 days Consider consult with General Surgeon for ongoing/worsening symptoms Return to the ED with any worsening symptoms and/or development of fever, headache, chest pain, palpitations, syncope, shortness of breath, trouble breathing, abdominal pain, n/v/d, abscess, purulent discharge, red streaks, worsening swelling, or other worsening symptoms that are concerning to you. Forms: Elevated Blood Pressure Referrals: ARUN JIN PA [Primary Care Provider] - Follow up as needed
[2019-09-01 15:41] VITALS: BP 132/75
== END 2019-09-01 15:41 | disposition home or self-care (01) ==
LOC: ER 15:17
DX: L03.114 Cellulitis of left upper limb (principal)
CPT/HCPCS: 99282

== ENCOUNTER → 2020-05-12 | Outpatient (CLI) | payer MEDICAID ==
--- NOTE | 2020-05-12 14:11 | WOMENS IMAGING REPORT ---
EXAM DESCRIPTION: BILAT SCREENING MAMMO W/CAD IMAGES COMPLETED DATE/TIME: 05/12/2020 1:05 pm REASON FOR STUDY: BILATERAL SCREENING MAMMOGRAM Z12.31 Z12.31 ENCNTR SCREEN MAMMOGRAM FOR MALIGNANT NEOPLASM OF JESUS COMPARISON: [id number] EXAM PARAMETERS: Standard craniocaudal and mediolateral oblique views of each breast recorded using digital acquisition. Read with the assistance of CAD. .[facility] - [employer] Version 9.2 LIMITATIONS: None. FINDINGS: No suspicious masses, suspicious calcifications or architectural distortion. No areas of c oncern. IMPRESSION: NEGATIVE MAMMOGRAM. BIRADS 1 BREAST DENSITY: b. There are scattered areas of fibroglandular density. BIRAD: ASSESSMENT: 1 NEGATIVE RECOMMENDATION: ROUTINE SCREENING COMMENT: The patient has been notified of the results by letter per MQSA requirements. Additional no tification policies are in place for contacting patient with suspicious or incomplete findings. Quality ID #[id number]: The [employer] recommends an annual screening mammogram for women aged 40 years or over. This facility utilizes a reminder system to ensure that all patients receive reminder letters, and/or direct phone calls for appointments. This includes reminders for routine scr eening mammograms, diagnostic mammograms, or other Breast Imaging Interventions when appropriate. Th is patient will be placed in the appropriate reminder system. TECHNICAL DOCUMENTATION: FINDING NUMBER: (1) ASSESSMENT: (1) JOB ID: [id number] 2010 [employer]- All Rights Reserved Reading location - IP/workstation name: [email or web address]
== END ==
LOC: WI 12:43
PROVIDERS: ATTEND Physician Assistant
DX: Z12.31 Encounter for screening mammogram for malignant neoplasm of breast (principal)
CPT/HCPCS: 77067

== ENCOUNTER → 2020-05-25 | Outpatient (CLI) | payer MEDICAID | LOC: RAD 18:00 | PROVIDERS: ATTEND Internal Medicine Gastroenterology | DX: K76.9 Liver disease, unspecified (principal); R93.5 Abnormal findings on diagnostic imaging of other abdominal regions, including retroperitoneum; Z94.4 Liver transplant status; Z79.899 Other long term (current) drug therapy; Z85.05 Personal history of malignant neoplasm of liver | CPT/HCPCS: 82565; 74183; A9576 ==

== ENCOUNTER → 2020-07-12 | Outpatient (CLI) | payer MEDICAID ==
--- NOTE | 2020-07-12 15:23 | RADIOLOGY REPORT (SQ) ---
EXAM DESCRIPTION: PHYSIO ARTERIAL LTD IMAGES COMPLETED DATE/TIME: 07/12/2020 3:12 pm REASON FOR STUDY: PAIN IN BILATERAL LEGS M79.604 PAIN IN RIGHT LEG M79.605 PAIN IN LEFT LEG COMPARISON: None. TECHNIQUE: Brachial blood pressure obtained. Pressures obtained of the peripheral vessels at the lev el of the ankle. Ankle brachial indices calculated. LIMITATIONS: None. FINDINGS: RIGHT MANDA: Normal, greater than 1.0. LEFT MANDA: Normal, greater than 1.0. IMPRESSION: NORMAL BILATERAL ABIS. COMMENT: [facility] NORMAL: Greater than 1.0 MINIMAL DISEASE: 0.9 to 1.0 CLAUDICATION: 0.5 to 0.9 SEVERE ARTERIAL DISEASE: Less than 0.5 [facility] NORMAL: Greater than 1.0 (1.2 If Heavy Calcifications) NORMAL TO MILD ISCHEMIA: 0.8 to 1.0 MODERATE ISCHEMIA: 0.4 to 0.8 SEVERE ISCHEMIA: Less than 0.4 TECHNICAL DOCUMENTATION: JOB ID: [id number] 2010 [employer] All Rights Reserved Reading location - IP/workstation name: [email or web address]
== END ==
LOC: SP 13:43
PROVIDERS: ATTEND Physician Assistant
DX: M79.604 Pain in right leg (principal); M79.605 Pain in left leg
CPT/HCPCS: 93922